=== PATIENT | female | born 1980 | race Caucasian/White ===

== ENCOUNTER → 2016-11-01 | Outpatient (CLI) | payer BC, SELFPAY ==
[~2016-11-01] MED LIST: CALCIUM500 M1 PO; CELEXA40 MG PO; FLEXERIL-DPS10 MG PO; IRON325 M1 PO; MACROBID100 MG PO; NEXIUM40 MG PO; PERCOCET 5 DPS1 TAB PO; SENOKOT S1 TAB PO; TEMOVATE O.05%15 GM TP; THERA1 EACH PO; TYLENOL DPS325 MG PO; URECHOLINE-DPS25 MG PO; ZYRTEC DPS10 MG PO
== END | disposition home or self-care (01) ==
LOC: PTH.S 07:31
DX: Z01.812 Encounter for preprocedural laboratory examination (principal)

== ENCOUNTER 2016-11-07 05:22 | Observation (INO) | payer BC, SELFPAY ==
[~2016-11-07] VITALS: Ht 154.9 cm; Wt 65.0 kg
[2016-11-08] MEDS ORDERED: CALCIUM500 M1 PO (20:17)
[2016-11-08] MEDS ORDERED: FLEXERIL-DPS10 MG PO (20:17)
[2016-11-08] MEDS ORDERED: NEXIUM40 MG PO (20:17)
[2016-11-08] MEDS ORDERED: CELEXA40 MG PO (20:17)
[2016-11-08] MEDS ORDERED: ZYRTEC DPS10 MG PO (20:18)
[2016-11-08] MEDS ORDERED: TEMOVATE O.05%15 GM TP (20:18)
[2016-11-08] MEDS ORDERED: IRON325 M1 PO (20:18)
[2016-11-08] MEDS ORDERED: THERA1 EACH PO (20:18)
[2016-11-08] MEDS ORDERED: TYLENOL DPS325 MG PO (20:18)
[2016-11-08] MEDS ORDERED: MACROBID100 MG PO (20:19)
[2016-11-08] MEDS ORDERED: SENOKOT S1 TAB PO (20:19)
[2016-11-08] MEDS ORDERED: URECHOLINE-DPS25 MG PO ×2 (20:19→20:20)
[2016-11-08] MEDS ORDERED: PERCOCET 5 DPS1 TAB PO (20:19)
--- NOTE | 2016-11-25 13:16 | OR ---
ADMIT: 11/07/2016 RM/LOC: 617 [facility] MR#: [id number] [facility]#: [id number] [address] [address] GERADL LUIS [address] [place] [id number] Operative/Delivery Room Report SEX: F AGE: 36 : 1980 SURGERY DATE: 11/07/2016 SURGEON: Alo León MD CAMP MANAGER: Shaila Meng MD PROVISIONAL DIAGNOSES: A second-degree uterine descensus with pelvic pain with hypermobility of the urethra and stress incontinence. 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 Pending path report. OPERATION: Laparoscopic assisted vaginal hysterectomy with minimal cauterization of endometrial implants with bilateral salpingectomy and TVTO. DESCRIPTION OF PROCEDURE: The patient was taken to the operating room and under general anesthesia prepped and draped in usual manner. Placed in a Yellofin stirrups in lithotomy position. The cervix was identified with a bivalve speculum and grasped with a single-tooth tenaculum. Initially required a dilatation of the cervix to allow insertion of the VCare instrument, but #14 diagnostic dilator was inserted and then we were able insert the cannula of the VCare instrument and filled the bulb with10 mL of air. The bladder had been drained with a Penny catheter. Dr. Meng had begun the insufflation procedure by making a stab incision in the subumbilical area after injecting Xylocaine around it, and then instilling the carbon dioxide gas in the usual manner until adequate distention was obtained. The 5 mm cannula and trocar were inserted in the subumbilical port site and the laparoscope then was inserted. Two port sites and each side of the lower abdomen just medial to the iliac crests were identified, and avascular area was identified and a small incision was made after injecting with Xylocaine, and the other additional 5 mm port and cannula were inserted with then insertion of another port on the right side. Careful evaluation of the pelvic contents revealed a corpus luteal cyst being present involving the left ovary and some early pelvic endometriosis implants in the uterosacral ligament lateral pelvic wall area. These were early and we were not able to demonstrate peristalsis of the ureter in the area of the implants, but we superficially cauterized the one in the right uterosacral ligament area and minimal cauterization of one of the implants of the small implants on the left side. The right tube was grasped with the grasping forceps and elevated, and then using a Thunderbeat device we were able to cauterize and cut down to near the cornual area of the uterus. The tube actually was resected at its insertion into the cornual area on the left side and we were able to subsequently remove it through the cannula on the left side. This was involving the left tube. The round ligaments were cauterized and cut eventually at the bladder reflection. The broad ligament had been cauterized and cut, and then when we reached the bladder reflection, we cut across that area with cautery carefully and made the opening for eventual bladder dissection off the lower uterine segment when we reached the vaginal stage. The patient had moderate amount of bleeding from the uterine pedicles, ADMIT: 11/07/2016 RM/LOC: 617 [facility] MR#: [id number] [address] [address] [address]ERAL[address] LUIS [address] [place] [address] Operative/Delivery Room Report SEX: F AGE: 36 : 1980 apparently a good deal of back bleeding. This was cauterized again in the bleeding sites, but we elected to just transfer down to the vaginal procedure part to get the uterus sound. The cervix was grasped with Ferreira tenaculum. A circular incision was made around the cervix at the bladder reflection. The VCare device had been removed prior to placing the Ferreira tenaculum. The posterior cul-de-sac was opened after the vaginal mucosa had been pushed upward with removal of some recent clotted blood. The uterosacral ligaments were cross clamped, incised, and ligated with a stick tie. The cardinal ligament area was cross clamped, incised with a Jg type stitch. The anterior cul-de-sac was opened. The uterine vessels were cross clamped, incised, and ligated again with a Jg type stitch. At this time, any oozing that had been present essentially stopped. The fundus of the uterus was grasped posteriorly with a single-tooth tenaculum and the uterus everted with essentially everything having been cauterized and cut on the left side, but a pedicle remained on the right side attached to the utero-ovarian ligament area and this was cross clamped, incised, and ligated. Once this was done, we found no other sites of actual bleeding vaginally. The pelvic peritoneum was closed using a pursestring suture of 0 Vicryl incorporating the upper aspect the uterosacral ligaments and posterior cul-de-sac as high as possible to obliterate any potential enterocele. On the right side, the uterosacral ligaments suture had been inadvertently cut and it was not present. On the left side, we used the suture that was still intact and placed it through the vaginal mucosa to add additional support to the area. The pelvic peritoneum was then tied with a pursestring suture and closed it in excellent fashion. The vagina was closed using interrupted [id number] 0 Vicryl suture. A final closure was accomplished using the pelvic peritoneal closure stitch anchoring this to the vaginal mucosa to add additional support in obliterating any space. At this time with traction downward on the Penny catheter, we identified the UV angle and the midline incision was made after grasping the tissue directly beneath the urethrovesical angle. The vaginal mucosa was incised from this suture up to near the urethral meatus and mobilized the vaginal mucosa from the underlying periurethral tissue eventually identifying the retropubic space and digitally dissecting the tissue in this area upward. We identified the obturator fossa at palpation, and a small incision was made in the area, and then using the Halo device, we placed it through the small incision in the obturator fossa area retropubically coming out into the retropubic space at the level of the mid portion of the urethra. We attached the covering of the mesh and pulled it back through to that degree and finished the right side. Then, we cut the tab that held the mesh covering together, and then with a curved Jg clamp to prevent over tightening, we pulled the mesh covering off the mesh. We then cut the mesh as it entered obturator fossa openings and closed the incision ADMIT: 11/07/2016 RM/LOC: 617 [facility] MR#: [id number] [address] [address] [address] [place] [address] Operative/Delivery Room Report SEX: F AGE: 36 : 1980 after making some adjustments for the excess redundant vaginal tissue that was in this area by excising a small amount of tissue from the edges of the incision site, and then closed the incision with a 2-0 Vicryl suture. Adequate hemostasis was present. Dr. Shaila Meng had cut up and reinsufflated the abdomen and carefully looked for any sites of bleeding, none were found. Irrigated the pelvic cavity and then removed the ports after eliminating the carbon dioxide by downward pressure on the abdomen with the final removal of the subumbilical port site and a laparoscope. The incisions were closed with 4-0 Vicryl subcutaneously and covered with Steri-Strips and the procedure then was terminated. The patient lost approximately 250 mL of blood none of which was replaced. She left the operating room in satisfactory condition. Alo León MD/ nicole JOB #: [id number] CC: Alo León, Attending Physician Rosanne Ohara, Family Physician
== END 2016-11-08 16:30 | disposition home or self-care (01) ==
LOC: WOR 05:22 → 6PED 05:22
PROVIDERS: ADMIT Obstetrics & Gynecology
PROC: 0UT7FZZ Resection of Bilateral Fallopian Tubes, Via Natural or Artificial Opening With Percutaneous Endoscopic Assistance (ICD-10-PCS; principal; 2016-11-07)
PROC: 0UTC7ZZ Resection of Cervix, Via Natural or Artificial Opening (ICD-10-PCS; principal; 2016-11-07)
PROC: 0UT9FZZ Resection of Uterus, Via Natural or Artificial Opening With Percutaneous Endoscopic Assistance (ICD-10-PCS; principal; 2016-11-07)
PROC: 0TSD0ZZ Reposition Urethra, Open Approach (ICD-10-PCS; principal; 2016-11-07)
DX: N83.8 Other noninflammatory disorders of ovary, fallopian tube and broad ligament (principal); N72 Inflammatory disease of cervix uteri; N81.2 Incomplete uterovaginal prolapse; N39.3 Stress incontinence (female) (male); N80.3 Endometriosis of pelvic peritoneum; K21.9 Gastro-esophageal reflux disease without esophagitis; D64.9 Anemia, unspecified; Z87.891 Personal history of nicotine dependence; F17.210 Nicotine dependence, cigarettes, uncomplicated; Z79.899 Other long term (current) drug therapy

== ENCOUNTER 2016-11-11 23:24 | Emergency (ER) | payer BC ==
--- NOTE | 2016-11-12 07:08 | ER ---
ADMIT: 11/11/2016 RM/LOC: ER [facility] MR#: [id number] [address] [address] GERALD LUIS [address] [place] [address] Emergency Room Report SEX: F AGE: 36 : 1980 DATE: 11/11/2016 The patient is a 36-year-old female, postop day [address] León, developed fever earlier in the day, was seen in the office for Penny catheter change, placed on antibiotics for UTI. Spoke to Dr. Mau waddell and referred in for possible DVT. The patient denies any chest pain, though does admit to nonproductive cough. No shortness of breath or prior history of DVT. Family history is likewise negative for coagulopathy. Exam remarkable for nontoxic, febrile patient. No acute distress. Chest x-ray negative. WBC 11.1, hemoglobin 9.6, CRP 13.6, lactic 1.0, procalcitonin less than 0.05. D- dimer elevated at 2.13. Troponin less than 0.015. UA negative. Chest x-ray negative. Venous Doppler right leg negative for DVT. The patient declined any pain medication, is due to follow up Dr. León's clinic on for Penny removal. Discussed case with Dr. León, who is aware and will re- ultrasound the leg if pain persists. Continue current pain medications and antibiotics. Osmin Vidal MD/ nicole JOB #: [id number] CC: Osmin Vidal MD, Attending Physician Alo León MD, Family Physician Rosanne Ohara APRN
== END 2016-11-12 02:00 | disposition home or self-care (01) ==
LOC: ER 23:24
DX: M79.651 Pain in right thigh (principal); R50.9 Fever, unspecified; Z90.710 Acquired absence of both cervix and uterus; Z79.899 Other long term (current) drug therapy

== ENCOUNTER → 2016-11-14 | Outpatient (CLI) | payer BC, SELFPAY | END | disposition home or self-care (01) | LOC: RAD.S 17:50 | DX: R10.31 Right lower quadrant pain (principal); R50.9 Fever, unspecified; Z90.710 Acquired absence of both cervix and uterus ==